=== PATIENT | female | born 1965 | race Caucasian/White ===

== ENCOUNTER 2023-12-08 08:09 | Day surgery (SDC) | payer OTHER ==
[~2023-12-08] VITALS: Ht 147.3 cm; Wt 72.6 kg
[2023-12-08] MEDS ORDERED: fentaNYL citrate 0.05 MG/ML VIAL ONE (09:22)
[2023-12-08] MEDS ORDERED: MIDAZOLAM 2 MG/2 ML VIAL ONE (09:31)
[2023-12-08] MEDS: fentaNYL citrate 0.05 MG/ML VIAL IVP ONE (09:44)
[2023-12-08] MEDS: MIDAZOLAM 2 MG/2 ML VIAL IVP ONE (09:45)
[2023-12-08] MEDS: LIDOCAINE 2% 100 MG/5 ML UJET TP ONE (10:42)
== END 2023-12-08 11:25 | disposition home or self-care (01) ==
LOC: MDS 08:09 → MMU 08:12 → MDS 11:25
PROVIDERS: ATTEND Internal Medicine Gastroenterology
DX: Z12.11 Encounter for screening for malignant neoplasm of colon (principal); K57.30 Diverticulosis of large intestine without perforation or abscess without bleeding; Z80.0 Family history of malignant neoplasm of digestive organs; Z98.891 History of uterine scar from previous surgery
CPT/HCPCS: 45378; J2250; J3010